=== PATIENT | female | born 1975 | race Two or more races ===

== ENCOUNTER 2019-06-05 14:51 | Emergency (ER) | payer OTHER ==
[~2019-06-05] VITALS: Ht 162.6 cm; Wt 68.0 kg
[2019-06-05 15:02] VITALS: BP 144/90
== END 2019-06-05 16:04 | disposition home or self-care (01) ==
LOC: ER 14:51
DX: R05 Cough (principal); R51 Headache; Z20.828 Contact with and (suspected) exposure to other viral communicable diseases